=== PATIENT | female | born 1945 | race Caucasian/White ===

== ENCOUNTER → 2017-01-12 | Outpatient (CLI) | payer MEDICARE, OTHER ==
[~2017-01-12] MED LIST: COZAAR DPS25 MG PO; DYMISTA NASAL S23 GM NS; HYDROCODONE 5MG/5 MG PO; PRILOSEC40 MG PO; SIMVASTATIN80 MG PO
== END | disposition home or self-care (01) ==
LOC: RAD.S 13:43
DX: R10.32 Left lower quadrant pain (principal); K57.32 Diverticulitis of large intestine without perforation or abscess without bleeding; K43.9 Ventral hernia without obstruction or gangrene; Z90.49 Acquired absence of other specified parts of digestive tract